=== PATIENT | male | born 1955 | race Caucasian/White ===

== ENCOUNTER 2016-12-10 12:09 | Emergency (ER) | payer MEDICARE, OTHER ==
[2016-12-10 12:45] LABS: BASOPHIL 0.6 % (0-2); EOSINOPHIL 2.9 % (0-5); HCT 39.5 % (42.0-52.0); HGB 14.1 g/dl (13.2-18.0); LYMPHOCYTE 28.6 % (15-48); MCH 29.4 pg (25.0-31.0); MCHC 35.7 g/dL (32.0-36.0); MCV 82.3 fL (78.0-100.0); MPV 11.2 fL (6.0-9.5); NEUTROPHIL 60.9 % (41-80); PLT 191 K/uL (150-400); RDW 14.7 % (11.5-14.0); WBC 6.3 K/uL (4.0-10.5)
[2016-12-10 13:06] LABS: CREATININE 1.5 mg/dL (0.7-1.2); POTASSIUM 4.3 mmol/L (3.5-5.1)
== END 2016-12-10 15:20 | disposition home or self-care (01) ==
LOC: FER 12:09
PROVIDERS: Emergency Medicine
DX: M54.5 Low back pain (principal); M54.2 Cervicalgia; N18.9 Chronic kidney disease, unspecified; G30.9 Alzheimer's disease, unspecified; F02.80 Dementia in other diseases classified elsewhere, unspecified severity, without behavioral disturbance, psychotic disturbance, mood disturbance, and anxiety; W18.39XA Other fall on same level, initial encounter; Y92.129 Unspecified place in nursing home as the place of occurrence of the external cause
CPT/HCPCS: 36415; 70450; 71010; 72072; 72100; 72125; 72170; 80048; 84484; 85025

== ENCOUNTER 2017-02-13 19:55 | Day surgery (SDCO) | payer MEDICARE, OTHER ==
[~2017-02-13] VITALS: Ht 157.5 cm; Wt 66.9 kg
[2017-02-13 20:42] LABS: BASOPHIL 0.4 % (0-2); EOSINOPHIL 1.6 % (0-5); HGB 12.5 g/dl (13.2-18.0); LYMPHOCYTE 29.2 % (15-48); MCH 30.1 pg (25.0-31.0); MCHC 36.8 g/dL (32.0-36.0); MCV 81.9 fL (78.0-100.0); MONOCYTE 7.1 % (0-12); MPV 11.4 fL (6.0-9.5); NEUTROPHIL 61.7 % (41-80); PLT 173 K/uL (150-400); RBC 4.15 M/uL (4.70-6.00); RDW 14.4 % (11.5-14.0); WBC 6.8 K/uL (4.0-10.5)
[2017-02-13 20:52] LABS: INR 1.02 (0.9-1.2)
[2017-02-13 21:02] LABS: CKMB 3.8 ng/mL (0.97-4.94); TROPONIN T 0.012 ng/mL
[2017-02-13 21:03] LABS: ALBUMIN 4.1 g/dL (3.4-4.8); BILIRUBIN - TOTAL 0.4 mg/dL (0.1-1.0); CREATININE 1.6 mg/dL (0.7-1.2); GLOBULIN (CALCULATION) 2.4 g/dL (2.2-4.2); MAGNESIUM 1.93 mg/dL (1.40-2.10); POTASSIUM 5.2 mmol/L (3.5-5.1); TOTAL PROTEIN 6.5 g/dL (6.4-8.3)
[2017-02-14 04:00] LABS: CKMB 3.81 ng/mL (0.97-4.94); TROPONIN T 0.017 ng/mL
[2017-02-14 09:12] LABS: BASOPHIL 0.3 % (0-2); EOSINOPHIL 1.9 % (0-5); HCT 34.3 % (42.0-52.0); HGB 12.1 g/dl (13.2-18.0); LYMPHOCYTE 35.7 % (15-48); MCH 29.5 pg (25.0-31.0); MCHC 35.3 g/dL (32.0-36.0); MCV 83.7 fL (78.0-100.0); MONOCYTE 9.7 % (0-12); MPV 11.5 fL (6.0-9.5); NEUTROPHIL 52.4 % (41-80); PLT 146 K/uL (150-400); RDW 14.8 % (11.5-14.0); WBC 6.3 K/uL (4.0-10.5)
[2017-02-14 09:21] LABS: INR 1.06 (0.9-1.2); PROTHROMBIN TIME 13.4 SECONDS (11.7-14.0)
[2017-02-14 09:22] LABS: PTT 43.6 SECONDS (23.2-31.4)
[2017-02-14 09:31] LABS: ALBUMIN 4.1 g/dL (3.4-4.8); BILIRUBIN - TOTAL 0.9 mg/dL (0.1-1.0); CREATININE 1.6 mg/dL (0.7-1.2); GLOBULIN (CALCULATION) 2.4 g/dL (2.2-4.2); MAGNESIUM 2.02 mg/dL (1.40-2.10); PHOSPHORUS 3.4 mg/dL (2.7-4.5); POTASSIUM 4.2 mmol/L (3.5-5.1); TOTAL PROTEIN 6.5 g/dL (6.4-8.3)
[2017-02-14 09:32] LABS: CKMB 4.09 ng/mL (0.97-4.94); TROPONIN T 0.03 ng/mL
[2017-02-15 05:35] LABS: BASOPHIL 0.5 % (0-2); EOSINOPHIL 1.8 % (0-5); HCT 32.1 % (42.0-52.0); HGB 11.2 g/dl (13.2-18.0); MCH 29.1 pg (25.0-31.0); MCHC 34.9 g/dL (32.0-36.0); MCV 83.4 fL (78.0-100.0); MONOCYTE 9.1 % (0-12); MPV 11.1 fL (6.0-9.5); NEUTROPHIL 60.6 % (41-80); PLT 123 K/uL (150-400); RBC 3.85 M/uL (4.70-6.00); RDW 14.5 % (11.5-14.0)
[2017-02-15 05:55] LABS: BILIRUBIN - TOTAL 0.6 mg/dL (0.1-1.0); CREATININE 1.7 mg/dL (0.7-1.2); GLOBULIN (CALCULATION) 1.8 g/dL (2.2-4.2); POTASSIUM 4.7 mmol/L (3.5-5.1); TOTAL PROTEIN 5.8 g/dL (6.4-8.3)
== END 2017-02-15 13:38 | disposition other institution (70) ==
LOC: FER 19:55 → FTCU 23:40
PROVIDERS: Emergency Medicine Emergency Medical Services; Internal Medicine; ADMIT Internal Medicine
DX: I24.9 Acute ischemic heart disease, unspecified (principal); I25.110 Atherosclerotic heart disease of native coronary artery with unstable angina pectoris; G10 Huntington's disease; G30.9 Alzheimer's disease, unspecified; F02.80 Dementia in other diseases classified elsewhere, unspecified severity, without behavioral disturbance, psychotic disturbance, mood disturbance, and anxiety; E78.5 Hyperlipidemia, unspecified; I12.9 Hypertensive chronic kidney disease with stage 1 through stage 4 chronic kidney disease, or unspecified chronic kidney disease; E11.22 Type 2 diabetes mellitus with diabetic chronic kidney disease; N18.9 Chronic kidney disease, unspecified; E03.9 Hypothyroidism, unspecified; G47.00 Insomnia, unspecified; G47.33 Obstructive sleep apnea (adult) (pediatric); Z79.82 Long term (current) use of aspirin; Z79.02 Long term (current) use of antithrombotics/antiplatelets; Z79.4 Long term (current) use of insulin; Z79.899 Other long term (current) drug therapy; Z88.8 Allergy status to other drugs, medicaments and biological substances; Z91.018 Allergy to other foods; Z90.49 Acquired absence of other specified parts of digestive tract
CPT/HCPCS: 36415; 71010; 76705; 80053; 82150; 82550; 82553; 82962; 83605; 83690; 83735; 83874; 83880; 84100; 84484; 85025; 85610; 85730; 93005; 94010; G0378; J2270; J2405

== ENCOUNTER 2017-03-07 05:42 | Emergency (ER) | payer MEDICARE, OTHER ==
[2017-03-07 06:38] LABS: BASOPHIL 0.6 % (0-2); EOSINOPHIL 5.1 % (0-5); HCT 39.6 % (42.0-52.0); HGB 13.3 g/dl (13.2-18.0); LYMPHOCYTE 30.2 % (15-48); MCH 27.3 pg (25.0-31.0); MCHC 33.6 g/dL (32.0-36.0); MCV 81.1 fL (78.0-100.0); MONOCYTE 7.4 % (0-12); MPV 11.4 fL (6.0-9.5); NEUTROPHIL 56.7 % (41-80); PLT 391 K/uL (150-400); RBC 4.88 M/uL (4.70-6.00); RDW 17.1 % (11.5-14.0); WBC 8.8 K/uL (4.0-10.5)
[2017-03-07 06:40] LABS: INR 0.99 (0.9-1.2); PROTHROMBIN TIME 12.7 SECONDS (11.7-14.0)
[2017-03-07 06:41] LABS: PTT 35.8 SECONDS (23.2-31.4)
[2017-03-07 07:03] LABS: CKMB 3.26 ng/mL (0.97-4.94); TROPONIN T 0.048 ng/mL
[2017-03-07 07:53] LABS: ALBUMIN 4.3 g/dL (3.4-4.8); BILIRUBIN - TOTAL 0.5 mg/dL (0.1-1.0); CREATININE 1.4 mg/dL (0.7-1.2); GLOBULIN (CALCULATION) 3.9 g/dL (2.2-4.2); POTASSIUM 4.3 mmol/L (3.5-5.1); TOTAL PROTEIN 8.2 g/dL (6.4-8.3)
[2017-03-07 08:20] LABS: MAGNESIUM 2.19 mg/dL (1.40-2.10)
== END 2017-03-07 09:57 | disposition home or self-care (01) ==
LOC: FER 05:42
PROVIDERS: Emergency Medicine Emergency Medical Services
DX: R07.89 Other chest pain (principal); I12.9 Hypertensive chronic kidney disease with stage 1 through stage 4 chronic kidney disease, or unspecified chronic kidney disease; E11.22 Type 2 diabetes mellitus with diabetic chronic kidney disease; N18.9 Chronic kidney disease, unspecified; Z79.4 Long term (current) use of insulin; Z95.1 Presence of aortocoronary bypass graft; G10 Huntington's disease; E78.5 Hyperlipidemia, unspecified; G30.9 Alzheimer's disease, unspecified; F02.80 Dementia in other diseases classified elsewhere, unspecified severity, without behavioral disturbance, psychotic disturbance, mood disturbance, and anxiety; Z90.49 Acquired absence of other specified parts of digestive tract; Z66 Do not resuscitate; Z88.3 Allergy status to other anti-infective agents; Z88.8 Allergy status to other drugs, medicaments and biological substances; Z91.010 Allergy to peanuts
CPT/HCPCS: 36415; 71010; 80053; 82550; 82553; 83735; 83874; 83880; 84484; 85025; 85610; 85730; 93005; J2270; J2405